=== PATIENT | male | born 1950 | race American Indian/Alaskan Native ===

== ENCOUNTER 2016-11-29 08:17 | Emergency (ER) | payer OTHER ==
--- NOTE | 2016-11-29 08:53 | EDM.PDOC ---
ED HPI GENERAL MEDICAL PROBLEM - General Chief Complaint: Genitourinary Problem Stated Complaint: CHILLS, BURNING URINATION AFTER PROSTATE SURGERY Time Seen by Provider: 11/29/16 08:46 - History of Present Illness INITIAL COMMENTS - FREE TEXT/NARRATIVE: Patient presents emergency room with chills painful urination and a sensation that is not emptying completely. Patient has a history of a TURP 1-1/2 years ago. The patient had a stricture that was clipped on of this last week in 2 positions. Patient was discharged with a Faulkner. The Faulkner was removed yesterday at home without difficulty. Patient did fine yesterday however awoke with chills this morning urinary frequency and inability to empty. The patient was given antibiotics prior to the procedure however has not taken any antibiotics since then. Headache Pain Score (Numeric/FACES): 5 - Related Data Allergies Allergy/AdvReac Type Severity Reaction Status Date / Time azithromycin Allergy Hives Verified 11/29/16 08:40 niacin Allergy Cannot Verified 11/29/16 08:40 Remember risperidone Allergy Cannot Verified 11/29/16 08:40 Remember rosuvastatin [From Crestor] Allergy Itching Verified 11/29/16 08:40 spironolactone Allergy Cannot Verified 11/29/16 08:40 Remember trazodone Allergy Insomnia Verified 11/29/16 08:40 zolpidem Allergy Hives Verified 11/29/16 08:40 gabapentin Allergy Depression Uncoded 11/29/16 08:40 iv contrast Allergy Hives Uncoded 11/29/16 08:40 statins Allergy Muscle Uncoded 11/29/16 08:40 Weakness Home Meds: Home Meds ARIPiprazole [Abilify] 5 mg PO DAILY 06/17/14 [History] Aspirin [Halfprin] 81 mg PO DAILY 06/17/14 [History] Cholecalciferol (Vitamin D3) [Cholecalciferol] 1 gm MC DAILY 06/17/14 [History] Dicyclomine HCl [Bentyl] 10 mg PO TID 06/17/14 [History] Ezetimibe [Zetia] 5 mg PO DAILY 06/17/14 [History] Fexofenadine HCl [Allergy Relief] 180 mg PO DAILY 06/17/14 [History] Fluticasone Propionate [Flovent Diskus] 50 mcg IH BID 06/17/14 [History] Hydrocodone/Acetaminophen [Hydrocodon-Acetaminophen 5-325] 1 each PO QID PRN [History] Levothyroxine Sodium [Synthroid] 0.137 mcg PO DAILY 06/17/14 [History] Lisinopril 5 mg PO DAILY 06/17/14 [History] Magnesium Oxide 420 mg PO BID 06/17/14 [History] Omeprazole 20 mg PO DAILY 06/17/14 [History] Propranolol HCl 20 mg PO BID 06/27/15 [History] Vitamin B Complex 1 each PO DAILY 06/27/15 [History] hydrOXYzine Pamoate [Hydroxyzine Pamoate] 25 mg PO TID PRN 06/27/15 [History] Ibuprofen 800 mg PO TID PRN 01/20/16 [History] Ciprofloxacin HCl [Cipro] 500 mg PO Q12H #14 tablet 11/29/16 [Rx] Escitalopram [Lexapro] 20 mg PO DAILY 11/29/16 [History] Past Medical History HEENT History: Reports: Hard of Hearing Cardiovascular History: Reports: High Cholesterol, [place] Genitourinary History: Reports: Prostate Disorder Musculoskeletal History: Reports: Fracture Psychiatric History: Reports: Anxiety, Depression Endocrine/Metabolic History: Reports: Hypothyroidism - Past Surgical History Male Surgical History: Reports: TURP-Transurethral Resection of Prostate Social & Family History - Family History Family Medical History: Noncontributory - Tobacco Use Smoking Status *Q: Never Smoker Second Hand Smoke Exposure: No - Caffeine Use Caffeine Use: Reports: Coffee - Alcohol Use Days Per Week of Alcohol Use: 0 - Recreational Drug Use Recreational Drug Use: No ED ROS GENERAL - Review of Systems Review Of Systems: See Below Constitutional: Reports: Chills. Denies: Fever HEENT: Reports: No Symptoms Respiratory: Reports: No Symptoms Cardiovascular: Reports: No Symptoms GI/Abdominal: Reports: No Symptoms : Reports: Frequency, Urgency. Denies: Hematuria Neurological: Reports: No Symptoms ED EXAM, GI/ABD - Physical Exam Exam: See Below Exam Limited By: No Limitations General Appearance: Alert, No Apparent Distress Respiratory/Chest: No Respiratory Distress, Lungs Clear, Normal Breath Sounds Cardiovascular: Regular Rate, Rhythm, No Edema, No Murmur GI/Abdominal Exam: Normal Bowel Sounds, Soft, Non-Tender Back Exam: Normal Inspection. No: CVA Tenderness (L), CVA Tenderness (R) Neurological: Alert, Oriented, Normal Cognition Course - Vital Signs Last Recorded V/S: Last Vital Signs Temp 37.1 C 11/29/16 08:31 Pulse 70 11/29/16 08:31 Resp 12 11/29/16 08:31 BP 121/80 11/29/16 08:31 Pulse Ox 97 11/29/16 08:31 - Orders/Labs/Meds Orders: Active Orders 24 hr Category Date Time Status CULTURE URINE [RM] Stat Lab 11/29/16 09:33 Uncollected cefTRIAXone [Rocephin] 1 gm Med 11/29/16 09:47 Ordered Sodium Chloride 0.9% [Normal Saline] 100 ml IV ONETIME Labs: Laboratory Tests 11/29/16 11/29/16 11/29/16 Range/Units 08:30 08:50 08:50 WBC 12.36 H (4.23-9.07) K/mm3 RBC 4.38 L (4.63-6.08) M/mm3 Hgb 14.0 (13.7-17.5) gm/L Hct 40.8 (40.1-51.0) % MCV 93.2 H (79.0-92.2) fl MCH 32.0 (25.7-32.2) pg MCHC 34.3 (32.2-35.5) g/dl RDW Std Deviation 44.3 H (35.1-43.9) fL Plt Count 162 L (163-337) K/mm3 MPV 9.2 L (9.4-12.3) fl Neutrophils % (Manual) 83 H (40-60) % Band Neutrophils % 4 (0-10) % Lymphocytes % (Manual) 7 L (20-40) % Atypical Lymphs % 0 % Monocytes % (Manual) 4 (2-10) % Eosinophils % (Manual) 2 (0.8-7.0) % Basophils % (Manual) 0 L (0.2-1.2) Platelet Estimate Adequate RBC Morph Comment Normal Sodium 139 (136-145) mEq/L Potassium 4.1 (3.5-5.1) mEq/L Chloride 103 (98-107) mEq/L Carbon Dioxide 30 (21-32) mEq/L Anion Gap 10.1 (5-15) BUN 20 H (7-18) mg/dL Creatinine 1.1 (0.7-1.3) mg/dL Est Cr Clr Drug Dosing 72.51 mL/min Estimated GFR (MDRD) > 60 (>60) mL/min BUN/Creatinine Ratio 18.2 H (14-18) Glucose 113 (80-115) mg/dL Calcium 9.0 (8.5-10.1) mg/dL Total Bilirubin 0.5 (0.2-1.0) mg/dL AST 37 (15-37) U/L ALT 79 H (16-63) U/L Alkaline Phosphatase 96 (46-116) U/L Total Protein 7.3 (6.4-8.2) g/dl Albumin 3.9 (3.4-5.0) g/dl Globulin 3.4 gm/dL Albumin/Globulin Ratio 1.2 (1-2) Urine Color Yellow (Yellow) Urine Appearance Cloudy H (Clear) Urine pH 6.5 (5.0-8.0) Ur Specific [place] 1.025 (1.005-1.030) Urine Protein 2+ H (Negative) Urine Glucose (UA) Negative (Negative) Urine Ketones Negative (Negative) Urine Occult Blood 3+ H (Negative) Urine Nitrite Negative (Negative) Urine Bilirubin Negative (Negative) Urine Urobilinogen 0.2 (0.2-1.0) Ur Leukocyte Esterase 2+ H (Negative) Urine RBC 10-20 H (0-5) /hpf Urine WBC 20-30 H (0-5) /hpf Ur Epithelial Cells 0-5 (0-5) /hpf Urine Bacteria Few (FEW) /hpf Urine Mucus Not seen (FEW) /hpf - Re-Assessments/Exams Free Text/Narrative Re-Assessment/Exam: 11/29/16 09:01 We'll check labs UA and bladder scan. 11/29/16 09:48 She has a mildly elevated white count 12,360 83% segs 4% bands. Urinalysis shows 2+ leukocyte esterase microscopic shows more WBCs and RBCs. Urine culture set up. Case discussed with Dr. Liu, on-call urologist at [facility] as the [facility] urologist was not available. Patient be started on antibiotics, outpatient treatment. Patient will receive a gram of Rocephin now than to be started on Cipro 500 mg twice a day for a week. Departure - Departure Time of Disposition: 10:04 Disposition: Home, Self-Care 01 Clinical Impression: Urinary tract infection associated with indwelling urethral catheter - Discharge Information Referrals: Jeffrey Levin MD [Primary Care Provider] - Forms: ED Department Discharge Additional Instructions: Return to the emergency room with any questions problems or worsening symptoms. You been started on Cipro, this is an antibiotic take it twice daily until gone. Do not take hydroxyzine while taking the Cipro in do not use it to help you sleep for at least 2 or 3 days after you stop the Cipro. Follow-up with your urologist on Thursday over the phone and let them know what is going on. - My Orders Last 24 Hours: My Active Orders 11/29/16 09:33 CULTURE URINE [RM] Stat 11/29/16 09:47 cefTRIAXone [Rocephin] 1 gm Sodium Chloride 0.9% [Normal Saline] 100 ml IV ONETIME - Assessment/Plan Last 24 Hours: My Active Orders 11/29/16 09:33 CULTURE URINE [RM] Stat 11/29/16 09:47 cefTRIAXone [Rocephin] 1 gm Sodium Chloride 0.9% [Normal Saline] 100 ml IV ONETIME
[2016-11-29] MEDS ORDERED: cefTRIAXone 1 GM in Sodium Chloride 0.9% 100 ML IV ONE (09:47)
[2016-11-29] MEDS ORDERED: Acetaminophen 325 MG Tab PO ONE (10:34)
[2016-11-29 10:48] VITALS: BP 120/72
== END 2016-11-29 11:19 | disposition home or self-care (01) ==
LOC: JD.ED 08:17
DX: T83.511A Infection and inflammatory reaction due to indwelling urethral catheter, initial encounter (principal); N39.0 Urinary tract infection, site not specified; E78.00 Pure hypercholesterolemia, unspecified; I25.2 Old myocardial infarction; F41.9 Anxiety disorder, unspecified; F32.9 Major depressive disorder, single episode, unspecified; E03.9 Hypothyroidism, unspecified; Z88.1 Allergy status to other antibiotic agents; Z88.8 Allergy status to other drugs, medicaments and biological substances; Z79.82 Long term (current) use of aspirin; Z79.899 Other long term (current) drug therapy
CPT/HCPCS: 36415; 51798; 80053; 81001; 85025; 87086; 87088; 87186; 96365; 99284; A9270; J0696; J7030; 99283

== ENCOUNTER 2017-09-20 17:26 | Emergency (ER) | payer OTHER ==
[2017-09-20 17:51] VITALS: BP 125/85
[2017-09-20] MEDS ORDERED: HYDROmorphone 0.5 MG/0.5 ML SYRINGE IM ONE (18:01)
[2017-09-20] MEDS ORDERED: Ondansetron 4 MG Tab.DIS PO ONE (18:02)
--- NOTE | 2017-09-20 18:05 | EDM.PDOC ---
ED HPI GENERAL MEDICAL PROBLEM - General Chief Complaint: Lower Extremity Injury/Pain Stated Complaint: REG LEG INJURY Time Seen by Provider: 09/20/17 18:03 Source of Information: Reports: Patient History Limitations: Reports: No Limitations - History of Present Illness INITIAL COMMENTS - FREE TEXT/NARRATIVE: Patient is a 67-year-old male presents the ED complaining of right hamstring pain. Patient was roping calves and the rope accidentally got wrapped around his upper thigh. The calf was pulling away as the horse was point back point tension on his thigh. He states it feels like his hamstring was stretched. Since then he's had difficulty with weightbearing. He is currently utilizing a cane to ambulate. Denies any numbness or tingling to his lower extremity. Slight discomfort noted to the right hip. No pain noted with the palpation of the right knee, lower leg, ankle, or foot. Right Posterior Leg Pain Score (Numeric/FACES): 8 - Related Data Allergies Allergy/AdvReac Type Severity Reaction Status Date / Time azithromycin Allergy Hives Verified 11/29/16 08:40 niacin Allergy Cannot Verified 11/29/16 08:40 Remember risperidone Allergy Cannot Verified 11/29/16 08:40 Remember rosuvastatin [From Crestor] Allergy Itching Verified 11/29/16 08:40 spironolactone Allergy Cannot Verified 11/29/16 08:40 Remember trazodone Allergy Insomnia Verified 11/29/16 08:40 zolpidem Allergy Hives Verified 11/29/16 08:40 gabapentin Allergy Depression Uncoded 11/29/16 08:40 iv contrast Allergy Hives Uncoded 11/29/16 08:40 statins Allergy Muscle Uncoded 11/29/16 08:40 Weakness Home Meds: Home Meds ARIPiprazole [Abilify] 5 mg PO DAILY 06/17/14 [History] Aspirin [Halfprin] 81 mg PO DAILY 06/17/14 [History] Cholecalciferol (Vitamin D3) [Cholecalciferol] 1 gm MC DAILY 06/17/14 [History] Dicyclomine HCl [Bentyl] 10 mg PO TID 06/17/14 [History] Ezetimibe [Zetia] 5 mg PO DAILY 06/17/14 [History] Fexofenadine HCl [Allergy Relief] 180 mg PO DAILY 06/17/14 [History] Fluticasone Propionate [Flovent] 50 mcg IH BID 06/17/14 [History] Levothyroxine Sodium [Synthroid] 0.137 mcg PO DAILY 06/17/14 [History] Lisinopril 5 mg PO DAILY 06/17/14 [History] Magnesium Oxide 420 mg PO BID 06/17/14 [History] Omeprazole 20 mg PO DAILY 06/17/14 [History] Propranolol HCl 20 mg PO BID 06/27/15 [History] Vitamin B Complex 1 each PO DAILY 06/27/15 [History] hydrOXYzine Pamoate [Hydroxyzine Pamoate] 25 mg PO TID PRN 06/27/15 [History] Ibuprofen 800 mg PO TID PRN 01/20/16 [History] Ciprofloxacin HCl [Cipro] 500 mg PO Q12H #14 tablet 11/29/16 [Rx] Escitalopram [Lexapro] 20 mg PO DAILY 11/29/16 [History] Hydrocodone/Acetaminophen [Hydrocodon-Acetaminophen 5-325] 1 each PO QID PRN # 15 tablet 09/20/17 [Rx] Past Medical History HEENT History: Reports: Hard of Hearing Other HEENT History: wears bilateral hearing aids Cardiovascular History: Reports: High Cholesterol, [place] Respiratory History: Reports: Sleep Apnea Other Respiratory History: uses C pap Gastrointestinal History: Reports: GERD Other Gastrointestinal History: IBS Genitourinary History: Reports: Prostate Disorder Other Genitourinary History: TURP Musculoskeletal History: Reports: Fracture Psychiatric History: Reports: Anxiety, Depression Endocrine/Metabolic History: Reports: Hypothyroidism - Past Surgical History GI Surgical History: Reports: Cholecystectomy, Colonoscopy Male Surgical History: Reports: TURP-Transurethral Resection of Prostate Social & Family History - Family History Family Medical History: Noncontributory - Tobacco Use Smoking Status *Q: Current Every Day Smoker Years of Tobacco use: 1 Packs/Tins Daily: 0.5 - Caffeine Use Caffeine Use: Reports: Coffee - Recreational Drug Use Recreational Drug Use: No Review of Systems - Review of Systems Review Of Systems: ROS reveals no pertinent complaints other than HPI. ED EXAM, GENERAL - Physical Exam Exam: See Below Exam Limited By: No Limitations General Appearance: Alert, WD/WN, Mild Distress Ears: Hearing Grossly Normal Nose: Normal Inspection Throat/Mouth: Normal Voice, No Airway Compromise Neck: Normal Inspection, Supple Respiratory/Chest: No Respiratory Distress, No Accessory Muscle Use Cardiovascular: Normal Peripheral Pulses, Regular Rate, Rhythm Peripheral Pulses: 4+: Posterior Tibial (L), Posterior Tibial (R) Extremities: Normal Inspection, Other (No swelling, bruising, and or abrasions noted. Pain with palpation of the superior aspect of the hamstring at the insertion point. Pain with palpation along the hamstring. No knee pain. No lower leg discomfort. ) Neurological: Alert, Oriented, CN II-XII Intact, Normal Cognition, No Motor/ Sensory Deficits Psychiatric: Normal Affect, Normal Mood Skin Exam: Warm, Dry, Intact, Normal Color Course - Vital Signs Last Recorded V/S: Last Vital Signs Temp 98.3 F 09/20/17 17:50 Pulse 63 09/20/17 17:50 Resp 20 09/20/17 17:50 BP 125/85 09/20/17 17:50 Pulse Ox 96 09/20/17 17:50 - Orders/Labs/Meds Orders: Active Orders 24 hr Category Date Time Status Femur Min 2V Rt [CR] Stat Exams 09/20/17 18:01 Taken Meds: Medications Discontinued Medications Generic Name Dose Route Start Last Admin Trade Name Freq PRN Reason Stop Dose Admin Hydromorphone HCl 1 mg 09/20/17 18:01 09/20/17 18:38 Dilaudid IM 09/20/17 18:02 1 mg ONETIME ONE Administration Ondansetron HCl 4 mg 09/20/17 18:02 09/20/17 18:39 Zofran Odt PO 09/20/17 18:03 4 mg ONETIME ONE Administration - Re-Assessments/Exams Free Text/Narrative Re-Assessment/Exam: Ordered x-ray of the right hip and right femur. Ordered Dilaudid 1 mg IM and also Zofran 4 mg ODT. 09/20/17 18:59 x-ray of the right hip and right femur reviewed with Dr. Bangura with no acute bony abnormalities. Suspect patient has muscle strain due to mechanism injury. On reassessment pain has drastically improved. Patient will be discharged home with crutches, ashish wrap, and pain management. Return precautions discussed with the patient. Departure - Departure Time of Disposition: 19:57 Disposition: Home, Self-Care 01 Condition: Good Clinical Impression: Right hamstring muscle strain Qualifiers: Encounter type: initial encounter Qualified Code(s): S76.311A - Strain of muscle, fascia and tendon of the posterior muscle group at thigh level, right thigh, initial encounter - Discharge Information Prescriptions: Hydrocodone/Acetaminophen [Hydrocodon-Acetaminophen 5-325] 1 each PO QID PRN # 15 tablet PRN Reason: Pain (Severe 7-10) Instructions: Hamstring Strain, Crutch Use, Adult, [id number], Pain Medicine Instructions, [id number] Referrals: PCP,Not In Area [Primary Care Provider] - Forms: ED Department Discharge Additional Instructions: Utilizing crutches to ambulate. Over the next 3-5 days advance weight as tolerated. Utilize the Ashish wrap to the right hamstring to support it and decrease any pain that may be present. Apply ice to the affected area 4 times a day, 20 minutes in duration, do not apply directly on the skin. Elevate when able to reduce any swelling and pain. For severe pain take [place] one tab every 6 hours as needed[address] Do not drive this evening since receiving a sedative medication. Do not drive while taking the [place]. Follow-up with primary care provider in the next week to 10 days for reevaluation. Return to the ED if you develop any new or worsening symptoms. - My Orders Last 24 Hours: My Active Orders 09/20/17 18:01 Femur Min 2V Rt [CR] Stat - Assessment/Plan Last 24 Hours: My Active Orders 09/20/17 18:01 Femur Min 2V Rt [CR] Stat
--- NOTE | 2017-09-21 07:27 | CR ---
Right femur: AP and lateral views of the right femur were obtained. Slight medial and lateral joint space narrowing is seen within the knee with slight lateral osteophytes. Mild degenerative change is seen within the right hip. No fracture or other bony abnormality is identified. Impression: 1. Mild degenerative change. 2. Nothing acute is seen on two-view right femur study. Diagnostic code #2
== END 2017-09-20 20:15 | disposition home or self-care (01) ==
LOC: SUPCPDRO 17:26 → JD.ED 17:26
DX: S76.311A Strain of muscle, fascia and tendon of the posterior muscle group at thigh level, right thigh, initial encounter (principal); E78.00 Pure hypercholesterolemia, unspecified; I25.2 Old myocardial infarction; K21.9 Gastro-esophageal reflux disease without esophagitis; E03.9 Hypothyroidism, unspecified; F17.210 Nicotine dependence, cigarettes, uncomplicated; Z88.1 Allergy status to other antibiotic agents; Z88.8 Allergy status to other drugs, medicaments and biological substances; Z91.041 Radiographic dye allergy status; Z79.82 Long term (current) use of aspirin; Z79.899 Other long term (current) drug therapy; X50.9XXA Other and unspecified overexertion or strenuous movements or postures, initial encounter
CPT/HCPCS: 73552; 96372; 99283; A9270; J1170

== ENCOUNTER 2023-11-12 07:11 | Day surgery (SDC) | payer OTHER ==
[~2023-11-12 07:11] MED LIST: Sodium Chloride 0.9% 10 ML Syringe FLUSH PRN; Sodium Chloride 0.9% 10 ML Syringe FLUSH SCH
[2023-11-12] MEDS: Lactated Ringers 1,000 ML IV SCH (07:35)
[2023-11-12] MEDS ORDERED: Propofol 200 MG/20 ML SDV ONE ×2 (07:46→08:53)
[2023-11-12] MEDS ORDERED: Ondansetron 4 MG/2 ML SDV IVPUSH ONE (08:11)
[2023-11-12 10:08] VITALS: BP 116/77; PULSE 64
== END 2023-11-12 09:55 | disposition home or self-care (01) ==
LOC: JD.SDS 07:11
PROVIDERS: ATTEND Surgery
DX: Z12.11 Encounter for screening for malignant neoplasm of colon (principal); K64.8 Other hemorrhoids; K57.30 Diverticulosis of large intestine without perforation or abscess without bleeding; I25.10 Atherosclerotic heart disease of native coronary artery without angina pectoris; E78.00 Pure hypercholesterolemia, unspecified; K21.9 Gastro-esophageal reflux disease without esophagitis; Z79.82 Long term (current) use of aspirin; Z79.84 Long term (current) use of oral hypoglycemic drugs; Z79.899 Other long term (current) drug therapy; Z88.5 Allergy status to narcotic agent; Z88.8 Allergy status to other drugs, medicaments and biological substances; Z88.1 Allergy status to other antibiotic agents
CPT/HCPCS: 45380; 82947; J2704; J7120; 00811; 99100